=== PATIENT | female | born 1980 | race Caucasian/White ===

== ENCOUNTER 2016-10-19 23:53 | Emergency (ER) | payer MEDICAID, MEDICARE ==
--- NOTE | 2016-10-19 23:58 | ED Physician Chart ---
Chief Complaint/HPI - Patient Information Date Seen:: 10/19/16 Time Seen:: 23:55 Chief Complaint:: tooth pain History of Present Illness:: 36-year-old female, otherwise healthy, complains of acute, constant, worsening, aching, severe, 10/10, nonradiating left lower molar tooth pain 1 week. Has associated chipped tooth. Historian:: Patient Review:: Nurse's Note Reviewed Review of Systems - Review of Systems Other: Complete system review otherwise unremarkable except as noted in history of present illness. Past Medical History - Past Medical History Past Medical History: No significant medical hx Family History: None Social History: Non Smoker, No Alcohol, No Drug Use, Employed Surgical History: None Psychiatricy History: None Medication: None Family Medical History - Family Member Mother History Unknown: Yes Ethnicity: Non- Physical Exam - Physical Examination Other:: INITIAL VITAL SIGNS: Reviewed by me GENERAL: Alert and interactive. No acute distress HEAD: Head is normocephalic and atraumatic EYES: EOMI. No scleral icterus. No conjunctival injection ENT: Moist mucous membranes. Left lower molar has a large crack. Missing section NECK: Supple. No masses. Full range of motion RESPIRATORY: No tachypnea. Clear breath sounds bilaterally. No wheezing, rales, or rhonchi CV: Regular rate and rhythm. No murmurs, rubs, or gallops ABDOMEN: Soft, non-distended, non-tender. No guarding. No rebound. No masses. EXTREMITIES: No deformity. No cyanosis. No edema. SKIN: Warm and dry. No obvious rashes. NEUROLOGIC: Alert and oriented. Face is symmetric. Speech is normal. Moves all extremities equally. Motor and sensory distally intact. Assessment - Procedures Procedures:: Inferior alveolar block, right, performed by me 5 mL of 9-1 ratio lidocaine 1% with bupivacaine 0.25% injected into the inferior alveolar nerve area on the right lower mandible Patient tolerated the procedure well. No blood loss Improved pain Informed Consent: Procedure/risk/benefits explained by MD: Yes ED Septic Shock - . Is Septic Shock (SBP<90, OR Lactate>4 mmol\L) present?: No Reassessment (Disposition) - Reassessment Reassessment:: Patient presented with one week of worsening right lower molar dental pain. Has associated chipped tooth. Performed infra-alveolar block on the right. Successful block. Patient had pain relief. We'll see dentist tomorrow. Gave return to ER precautions. Patient agrees with and understands the plan. Blood pressure was noted to be elevated over 120/80. There were no signs of hypertension. Discussed the findings with the patient and recommended that the patient follow up with the primary care physician regarding the elevated blood pressure. Reassessment Condition:: Improved - Diagnosis Diagnosis:: Acute right lower tooth pain due to right lower molar fractured tooth Elevated blood pressure without a diagnosis of hypertension - Aftercare/Follow up Instructions Aftercare/Follow-Up Instructions:: Counseled pt regarding lab results/diagnosis & need follow up, Refer to Discharge Instructions - Patient Disposition Discharge/Transfer:: Home Time:: 00:49 Condition at Disposition:: Improved ED Discharge Plan - Patient Disposition Admit/Discharge/Transfer: PT DISCHARGED HOME Condition at Disposition: Improved Instructions: Dental Pain
[2016-10-20] MEDS ORDERED: Bupivacaine 0.5% 10 mL Vial ONE (00:28)
[2016-10-20] MEDS: Bupivacaine 0.5% 10 mL Vial INJ STA (00:53)
== END 2016-10-20 00:55 | disposition home or self-care (01) ==
LOC: ER 23:53
DX: S02.5XXA Fracture of tooth (traumatic), initial encounter for closed fracture (principal); R03.0 Elevated blood-pressure reading, without diagnosis of hypertension; X58.XXXA Exposure to other specified factors, initial encounter; Y93.89 Activity, other specified; Y92.89 Other specified places as the place of occurrence of the external cause; Y99.8 Other external cause status
CPT/HCPCS: 64400; J2001; X6530; Z7502; Z7610